=== PATIENT | female | born 1935 | race Caucasian/White ===

== ENCOUNTER → 2018-07-31 | Outpatient (CLI) | payer MEDICARE, OTHER ==
--- NOTE | 2018-07-31 16:56 | RAD ---
EXAM: LUMBAR SPINE 3 VIEWS WITH FLEXION/EXTENSION. HISTORY: Low back pain, spondylolisthesis. COMPARISON: None. FINDINGS: Lateral and flexion/extension views of the lumbar spine are obtained. At neutral, there is minimal grade 1 anterolisthesis at L4-5. There is minimal retrolisthesis at L3-4. The degree of listhesis does not clearly changed on flexion/extension. 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 Vertebral body heights are maintained, and no fractures are identified. Degenerative disc disease is mild to moderate from L1 through L3 and mild from L3 through L5. It is mild within the lower thoracic spine. An inferior vena cava filter and aortic atherosclerotic calcifications are noted. IMPRESSION: 1. Slight anterolisthesis at L4-5 and slight retrolisthesis at L3-4 do not clearly changed on flexion/extension. 2. Mild to moderate degenerative disc disease as above. Electronically signed by: Viridiana Toure MD (07/31/2018 4:53 PM) [facility]
== END | disposition home or self-care (01) ==
LOC: RAD 14:58
PROVIDERS: ATTEND Neurological Surgery
DX: M51.36 Other intervertebral disc degeneration, lumbar region (principal); M43.16 Spondylolisthesis, lumbar region; M47.897 Other spondylosis, lumbosacral region; I70.0 Atherosclerosis of aorta
CPT/HCPCS: 72100

== ENCOUNTER → 2018-08-20 | Outpatient (CLI) | payer MEDICARE, OTHER ==
[~2018-08-20] MED LIST: ALBU2.5V5 NEB; ATOR10TA60 PO; CLON0.5T11 PO; DOCU-109 PO; FLUO20CA8 PO; HYDR-971 PO; IPRA3AMP29 NEB; LEVO50TA5 PO; PRIM250T PO; RIVA20TA2 PO; SOLI5TAB2 PO
== END | disposition home or self-care (01) ==
LOC: SURGPAT 13:41
PROVIDERS: ATTEND Neurological Surgery
DX: Z01.818 Encounter for other preprocedural examination (principal); M51.16 Intervertebral disc disorders with radiculopathy, lumbar region
CPT/HCPCS: 87641

== ENCOUNTER 2018-08-30 06:41 | Observation (INO) | payer MEDICARE, OTHER ==
[~2018-08-30] VITALS: Ht 157.5 cm; Wt 69.4 kg
[2018-08-30] VITALS (9 sets, daily range): BP systolic 116–137; BP diastolic 42–76
[~2018-08-30 06:41] MED LIST changes: +BACITRACIN 50,000 UNIT in IV NORMAL SALINE 1000ML BAG 1,000 ML IRR ONE; +BUPIVAC MPF-EPI 0.5%-1:200000 30 ML VIAL. ONE; -DOCU-109 PO; +GELATIN SPONGE SIZE 100. ONE; -HYDR-971 PO; +KETOROLAC 60 MG/2 ML INJ FOR OR. ONE; +THROMBIN TOPICAL 20,000 UNIT SPRAY.SYRN KIT TP ONE
[2018-08-30] MEDS ORDERED: MORPHINE SULFATE 2 MG/ML VIAL. IV PRN (07:00)
[2018-08-30] MEDS ORDERED: PROCHLORPERAZINE 10 MG/2 ML VIAL. IV PRN (07:00)
[2018-08-30] MEDS ORDERED: fentaNYL PF VIAL 100 MCG/2 ML VIAL IV PRN ×2 (07:00→09:45)
[2018-08-30] MEDS ORDERED: LIDOCAINE 1% PF 2 ML VIAL. ID PRN (07:00)
[2018-08-30] MEDS ORDERED: ONDANSETRON PF 4 MG/2 ML VIAL. IV PRN ×2 (07:00→09:45)
[2018-08-30] MEDS ORDERED: HYDROmorphone 2 MG/ML VIAL IV PRN (07:00)
--- NOTE | 2018-08-30 07:15 | PREOP HP ---
DATE OF SERVICE: 08/30/2018 HISTORY OF PRESENT ILLNESS: The patient is a pleasant 83-year-old who has had difficulty with right hip and right anterior thigh and knee pain. She notes anterior thigh tightness and stiffness. The problems have been present for about 6 months. When the pain is severe, she rates it as a 10/10. Walking or sitting for any length of time increases her pain. She uses heat or ice. She takes [employer]. She has had epidural steroid injections and physical therapy without help. She has been in water therapy without help. There is no significant problem on the left side. PAST MEDICAL HISTORY: Arthritis, asthma, blood clots. PAST SURGICAL HISTORY: No surgical history documented. FAMILY HISTORY: Noncontributory. SOCIAL HISTORY: She is and retired. ALLERGIES: No known drug allergies. CURRENT MEDICATIONS: [employer], omeprazole, albuterol, atorvastatin, fluoxetine, ipratropium bromide, Synthroid, nystatin, prednisone, primidone, Xarelto and VESIcare. REVIEW OF SYSTEMS: A 12-point review of systems was obtained and is noncontributory except for that mentioned above. PHYSICAL EXAMINATION: NEUROSURGERY EXAMINATION: GENERAL APPEARANCE: Alert, pleasant, no acute distress. HEAD: Normocephalic, atraumatic. SKIN: Warm and dry. MUSCULOSKELETAL: Lumbar paraspinal muscle bulk is normal, restricted range of motion of the lumbar spine, [id number] tenderness of lower lumbar spine with palpation, normal range of motion of the lower extremities bilaterally. EXTREMITIES: No clubbing, cyanosis or edema. NEUROLOGIC: Alert and oriented x 3, normal recent and memory, strength 5/5 in lower extremities, sensory was intact to light touch in bilateral lower extremities, reflexes were present and symmetric in lower extremities bilaterally, negative straight leg raising bilaterally, normal gait. IMAGING: I reviewed her lumbar MRI scan. On that study, there is a grade 1 anterolisthesis of L4 on L5. There is moderately severe central canal stenosis and severe right neural foraminal stenosis. ASSESSMENT/PLAN: I believe the majority of the pain is related to the stenosis at L4-L5 in the right. After reviewing flexion, extension x-rays and determined there is no motion, my recommendation is that the patient undergo a right direct laminectomy at L4-L5. I spoke with her about decompressing that region and I spoke with her about the technique and the risks as well as expected postoperative course. She understands. We will move forward. HUGO MARISCAL MD DR: DASIA/sujatha JOB#: [id number] / [id number] CHLOÉ
[2018-08-30] MEDS: IV RINGERS,LACTATED 1000ML 1,000 ML IV SCH ×2 (07:31→11:13)
[2018-08-30] MEDS ORDERED: ROCURONIUM 50 MG/5 ML VIAL. ONE (08:26)
[2018-08-30] MEDS ORDERED: REMIFENTANIL 2 MG VIAL. IV ONE (08:27)
[2018-08-30] MEDS ORDERED: PROPOFOL 50 ML IV ONE (08:27)
[2018-08-30] MEDS ORDERED: PROPOFOL 20 ML IV ONE (08:27)
[2018-08-30] MEDS ORDERED: fentaNYL PF VIAL 250 MCG/5 ML VIAL ONE (08:27)
[2018-08-30] MEDS ORDERED: DEXAMETHASONE SOD PHOS 20 MG/5 ML VIAL. ONE (08:27)
[2018-08-30] MEDS ORDERED: ONDANSETRON PF 4 MG/2 ML VIAL. ONE (08:27)
[2018-08-30] MEDS ORDERED: MIDAZOLAM HCL/PF 2 MG/2 ML VIAL. ONE (08:27)
[2018-08-30] MEDS ORDERED: PROPOFOL 0 ML IV ONE (08:27)
[2018-08-30] MEDS ORDERED: PHENYLEPHRINE in 0.9% NACL PF 1 MG/10 ML SYRINGE. IV ONE (08:28)
[2018-08-30] MEDS ORDERED: LIDOCAINE 1% PF 5 ML VIAL. ONE (08:28)
[2018-08-30] MEDS: VANCOMYCIN 1GM IVPB FOR OMNI 250 ML IV PRN ×2 (09:17→13:12)
[2018-08-30] MEDS ORDERED: ACETAMINOPHEN 325 MG TABLET. PO PRN (09:45)
[2018-08-30] MEDS ORDERED: CALCIUM CARBONATE 500 MG TAB.CHEW PO PRN (09:45)
[2018-08-30] MEDS ORDERED: HYDROcodone/APAP 5/325MG 1 TAB TABLET PO PRN (09:45)
[2018-08-30] MEDS ORDERED: diphenhydrAMINE HCL 25 MG CAPSULE PO PRN (09:45)
[2018-08-30] MEDS ORDERED: MAGNESIUM HYDROXIDE 2,400 MG/30 ML ORAL.SUSP. PO PRN (09:45)
[2018-08-30] MEDS ORDERED: 0.9 % SODIUM CHLORIDE 10 ML DISP.SYRIN. IV PRN (09:45)
[2018-08-30] MEDS ORDERED: MAG HYDROX/ALUMINUM HYD/SIMETH 30 ML ORAL.SUSP PO PRN (09:45)
[2018-08-30] MEDS ORDERED: PHENYLEPHRINE 10 MG/ML VIAL. ONE ×2 (09:54)
[2018-08-30] MEDS ORDERED: GLYCOPYRROLATE 1 MG/5 ML VIAL. ONE (09:58)
[2018-08-30] MEDS ORDERED: NEOSTIGMINE METHYLSULFATE 5 MG/5 ML SYRINGE. ONE (10:43)
[2018-08-30] MEDS ORDERED: DESFLURANE > 120 MINUTES IH ONE (11:00)
[2018-08-30] MEDS: fentaNYL PF VIAL 100 MCG/2 ML VIAL IV PRN ×2 (11:14→11:51)
--- NOTE | 2018-08-30 11:22 | OP ---
DATE OF SURGERY: 08/30/2018 PREOPERATIVE DIAGNOSES: Lumbar spinal stenosis L4-L5 with severe right lumbar radiculopathy. POSTOPERATIVE DIAGNOSES: Lumbar spinal stenosis L4-L5 with severe right lumbar radiculopathy. OPERATION PERFORMED: Right direct laminectomy L4-L5 with decompression of the dura and exiting right L5 root. The operation was done with EMG monitoring, SSEP monitoring, fluoroscopy and microscopic dissection. SURGEON: Chirag Mariscal M.D. NAVAL SCIENCE TEACHER: JOCELYNN Montgomery, assisted with the surgery. She assisted with the exposure, then microdecompression as well as the closure. OPERATIVE INDICATIONS: The patient is a pleasant 83-year-old woman who developed severe intractable back and right leg pain, which failed conservative measures. On imaging studies, she had above-mentioned findings and I recommended lumbar microsurgical decompression. I discussed with her, her small grade 1 spondylolisthesis and I assured that there was no motion on flexion and extension films, but I did explain that her spondylolisthesis could worsen and she could at some point require further surgery including the possibility of instrumentation. She understood she wished me to go ahead. DESCRIPTION OF PROCEDURE: Following general endotracheal anesthesia, the patient was positioned prone on the Tim table. Lumbar region prepped and draped in standard fashion. KY hose and AV impulse boots were applied for DVT prophylaxis. The microscope was draped. Fluoroscopy was draped and brought into field and monitoring was established. Ancef 2 grams was given less than 1 hour prior to initiation of the surgery. Using fluoroscopic guidance, a small midline incision was made over the L4-L5 interspace. I dissected down through skin and and subcutaneous tissue, reflected the paraspinal muscles and placed a Sycamore micro disc retractor. I confirmed my position fluoroscopically. I tilted the patient away from me and drilled across the base of the midline to the contralateral side and then worked back ipsilaterally. I gently peeled away the very thickened ligamentum flavum. I used a 2.5 and 4 mm Kerrison rongeurs to enlarge laminotomy superiorly and inferiorly. I did drill over the foramen and performed a partial foraminotomy with a 2.5 mm Kerrison. At this point, then I tried to peel the ligament away. It was densely adherent to the dura and nerve root quite laterally and I gently freed this adherence up and then used Kerrison's to trim and remove the residual ligament and fully decompressed the region both above and below the disc. The disc was flat, there was a number of epidural veins over the disc, which I coagulated and then I explored carefully, I felt a discectomy was not indicated. I irrigated with antibiotic solution. I did use bone wax as well as a bipolar cautery judiciously for hemostasis. At the end of the operation, I had an excellent decompression at this level. I have removed the retractor, obtained hemostasis in the muscle, irrigated further and I closed the wound in layers with absorbable suture and the skin was closed with a 4-0 subcuticular stitch after I had obtained perfect hemostasis. I was quite pleased with the surgery. CHIRAG MARISCAL MD DR: DASIA/sujatha JOB#: [id number] / [id number] CHLOÉ
[2018-08-30] MEDS: POTASSIUM CL 20MEQ D5-0.45NACL 1,000 ML IV SCH (13:17)
[2018-08-30] MEDS: clonazePAM 0.5 MG TABLET PO SCH ×2 (14:00→21:08)
[2018-08-30] MEDS ORDERED: BISACODYL 5 MG TABLET.DR. PO SCH (21:00)
[2018-08-30] MEDS ORDERED: ATORVASTATIN CALCIUM 10 MG TABLET. PO SCH (21:00)
[2018-08-30] MEDS ORDERED: PRIMIDONE 250 MG TABLET PO SCH (21:00)
[2018-08-30] MEDS: DOCUSATE SODIUM 100 MG CAPSULE. PO SCH (21:08)
[2018-08-31] MEDS: POTASSIUM CL 20MEQ D5-0.45NACL 1,000 ML IV SCH (01:33)
[2018-08-31] MEDS: HYDROcodone/APAP 5/325MG 1 TAB TABLET PO PRN ×2 (06:15→11:51)
[2018-08-31 06:35] VITALS: BP 123/64
[2018-08-31] MEDS ORDERED: LEVOTHYROXINE 50 MCG TABLET PO SCH (07:00)
[2018-08-31] MEDS: DOCUSATE SODIUM 100 MG CAPSULE. PO SCH (08:48)
[2018-08-31] MEDS: clonazePAM 0.5 MG TABLET PO SCH (08:48)
[2018-08-31] MEDS ORDERED: FLUoxetine HCL 20 MG CAPSULE PO SCH (09:00)
[2018-08-31 11:00] VITALS: BP 104/69
--- NOTE | 2018-08-31 11:12 | DISCH ---
DISCHARGE INSTRUCTIONS Condition on Discharge Condition on Discharge: Stable Activity After Discharge Activity Instructions for Disc: Activity as tolerated, Avoid exertion, Walk in house Other activity instructions: AMBULATION ONLY EXERCISE; GRADUALLY INCREASE TIME AND DISTANCE Bathing Instructions: Shower-keep dressing dry, No Tub Bath until see Lifting Instructions after Dis: No heavy lifting, No pulling or pushing, Do not lift >10 pounds Exercise Instruction after Dis: Progress as tolerated Driving Instructions after Dis: Do not drive Weight Bearing Status after Di: No restrictions, Full weight bearing, As tolerated Diet after Discharge Diet after Discharge: Regular Diet Texture: Regular Liquid Texture: Thin Liquid Swallowing Supervision: None needed Wound Incision Care Wound/Incision Care: Ice to area for comfort, Keep wound/cast CDI Other wound/incision instructi: MAY SHOWER 48 HRS AFTER SURGERY;MAY REMOVE DRESSING IF NO DRAINAGE; NO DIRE Checks after Discharge DC Comment: INCREASE FRUITS, VEGETABLES AND FIBER, ATTEMPT BM EVERY 2-3 DAYS Follow-Up Follow up with: PRIMARY CARE DOCTOR FOR 2 WEEK APPT Follow Up With: CALL [phone] FOR A 2 MONTH POST OP APPT WITH DR. MARISCAL/ EDER Treatment/Equipment after DC Adaptive Equipment Issued: None HUGO MARISCAL MD Aug 31, 2018 11:12
[2018-08-31] MEDS ORDERED: DOCU-109 PO (11:14)
[2018-08-31] MEDS ORDERED: HYDR-971 PO (11:35)
--- NOTE | 2018-09-03 12:08 | PATHOLOGY ---
[facility] Accession Number: [id number] . 01 Material submitted: . LUMBAR DECOMPRESSION L4-5 . 01 Clinical history: . Lumbar spinal stenosis with neurogenic claudication, spondylolisthesis . 02 Diagnosis: Fibroadipose tissue, bone and cartilage, "lumbar spinal stenosis and lumbar decompression L4-5": - Fibroadipose tissue and bone consistent with lumbar decompression / stenosis. . (SHA:mml; 09/03/18) PENDING SALE TO [facility]/09/03/2018 . 02 Electronically signed: . Harley Montanez MD, Pathologist NPI- [id number] . 01 Gross description: . The specimen is received in formalin, labeled "Harding, Eve, lumbar decompression", and additionally labeled on the requisition as, "L4-5" are multiple estrada-white fibrous partially cauterized rubbery soft tissues admixed with bone fragments measuring 3.5 x 3.0 x 1.2 cm in aggregate. Reporting Consultant tissue is submitted in A1 after decalcification. ([facility]; 08/30/2018) [facility] . 02 Pathologist provided ICD-10: M48.061 . 02 CPT . 230132, [id number] Specimen Comment: A courtesy copy of this report has been sent to Specimen Comment: [phone], . Specimen Comment: Report sent to / DR RAZO Performed at: 01 [facility] [address], [place] [id number] MD Suleiman Ndiaye MD Phone: [phone] Performed at: 02 [facility] [address] [place], [place] [id number] MD Chuck Sesay MD Phone: [phone]
== END 2018-08-31 12:34 | disposition home or self-care (01) ==
LOC: SURG 06:41 → 4 SOUTHEST 09:37
PROVIDERS: ADMIT Neurological Surgery; ATTEND Neurological Surgery
DX: M48.061 Spinal stenosis, lumbar region without neurogenic claudication (principal); M54.16 Radiculopathy, lumbar region; M43.16 Spondylolisthesis, lumbar region; J45.909 Unspecified asthma, uncomplicated
CPT/HCPCS: 63047; 76000; 97116; 97162; 97530; A7015; G0378; G0379; G8978; G8979; G8980; J0780; J1100; J1885; J2250; J2370; J2405; J2704; J2710; J3010; J3370; J3490; J7030; J7120; 88304; 88311

== ENCOUNTER → 2019-02-12 | Outpatient (CLI) | payer MEDICARE, OTHER ==
[~2019-02-12] MED LIST changes: -BACITRACIN 50,000 UNIT in IV NORMAL SALINE 1000ML BAG 1,000 ML IRR ONE; -BUPIVAC MPF-EPI 0.5%-1:200000 30 ML VIAL. ONE; +DOCU-109 PO; -GELATIN SPONGE SIZE 100. ONE; +HYDR-3164 PO; -KETOROLAC 60 MG/2 ML INJ FOR OR. ONE; -THROMBIN TOPICAL 20,000 UNIT SPRAY.SYRN KIT TP ONE
--- NOTE | 2019-02-12 17:08 | KCIC ---
Flexion and extension lateral views of lumbar spine Clinical indications: Lumbar radiculopathy. FINDINGS: No compression fracture or discitis or lytic process is evident. Degenerative disc space narrowing and endplate spurring is seen throughout the lumbar spine. There is mild retrolisthesis of L3 and L4 which measures 3 mm in flexion and 4 mm in extension. There is a grade 1 anterolisthesis of L4-5 with measures 4 mm in flexion and by mm in extension. There is grade 1 anterolisthesis of L5-S1 which measures 7 mm in flexion and 8 mm in extension. Sclerotic degenerative facet arthropathy is seen at L4-5 and L5-S1. IMPRESSION: Degenerative spondylolisthesis of L3-4 through L5-S1. Electronically signed by: Mendoza Bill MD (02/12/2019 5:05 PM) [facility]
--- NOTE | 2019-02-12 17:40 | KCIC ---
MRI of the lumbar spine without contrast 02/12/2019 CLINICAL HISTORY: Low back pain which radiates down the right leg. TECHNIQUE: Unenhanced T1-weighted and T2-weighted sagittal and axial and inversion recovery sagittal images of the lumbar spine were obtained. FINDINGS: Comparison is made to radiographs of the lumbar spine dated earlier today. Very mild S-shaped curvature of the thoracolumbar spine is seen. Mild anterolisthesis of L4 in relation to L5 is noted. Degenerative signal changes are seen involving all of the disks of the lumbar spine. Degenerative signal changes are seen within the marrow surrounding these discs. Loss of height of the L1-2, L2-3, L3-4 and L4-5 discs is noted. The conus medullaris is normal morphology, position, and signal characteristics. At the L1-2 and L2-3 disc spaces there are mild to moderate generalized disc bulges. Degenerative changes are seen involving the facet joints bilaterally. These findings do not result in significant central spinal canal or neural foraminal stenosis. At the L3-4 disc space there is a mild to moderate generalized disc bulge. Degenerative changes are seen involving the facet joints bilaterally. There is moderate ligamentum flavum hypertrophy bilaterally. There is prominence of the posterior epidural fat. These findings when combined result in mild central spinal canal stenosis. No neural foraminal stenosis is seen. At the L4-5 disc space, the patient is post right hemilaminectomy. There is a mild to moderate generalized disc bulge. This is eccentric to the right. Degenerative changes are seen involving the facet joints, right greater than left. There is mild to moderate left ligamentum flavum hypertrophy. These findings do not result in significant central spinal canal stenosis. Mild to moderate right greater than left neural foraminal stenosis is seen. At the L5-S1 disc space there is a mild generalized disc bulge. Degenerative changes are seen involving the facet joints bilaterally. There is mild ligamentum flavum hypertrophy bilaterally. These findings do not result in significant central spinal canal stenosis. No neural foraminal stenosis is seen. IMPRESSION: 1. Post right hemilaminectomy at L4-5. 2. The changes of degenerative disc disease are seen throughout the lumbar spine. These findings result in mild central spinal canal stenosis at L3-4. Mild to moderate right greater than left neural foraminal stenosis is seen at L4-5. Electronically signed by: Alexander Manley MD (02/12/2019 5:37 PM) [id number]
== END | disposition home or self-care (01) ==
LOC: KCIC MRI 11:34
PROVIDERS: ATTEND Neurological Surgery
DX: M51.16 Intervertebral disc disorders with radiculopathy, lumbar region (principal); M43.17 Spondylolisthesis, lumbosacral region; M48.061 Spinal stenosis, lumbar region without neurogenic claudication; M47.26 Other spondylosis with radiculopathy, lumbar region; M47.818 Spondylosis without myelopathy or radiculopathy, sacral and sacrococcygeal region; M12.88 Other specific arthropathies, not elsewhere classified, other specified site; M53.3 Sacrococcygeal disorders, not elsewhere classified; M89.38 Hypertrophy of bone, other site; Z98.890 Other specified postprocedural states
CPT/HCPCS: 72100; 72148